=== PATIENT | female | born 1990 | race Hispanic/Latino ===

== ENCOUNTER 2017-06-22 15:12 | Emergency (ER) | payer MEDICAID ==
[2017-06-22 15:49] LABS: APPEARANCE,URINE Clear (CLEAR); BILIRUBIN,URINE Negative (NEGATIVE); COLOR,URINE Yellow (YELLOW); GLUCOSE, URINE (UA) Negative (NEGATIVE); KETONES,URINE Negative (NEGATIVE); LEUKOCYTE ESTERASE ,URINE Trace (NEGATIVE); NITRATE,URINE Negative (NEGATIVE); OCCULT BLOOD,URINE Negative (NEGATIVE); PROTEIN,URINE Negative (NEGATIVE); UROBILINOGEN,URINE 0.2 mg/dL (0.2-1.0)
[2017-06-22 15:51] LABS: BASOPHILS % (AUTO) 0.9 % (0.0-5.0); EOSINOPHILS % (AUTO) 5.1 % (0.0-8.0); HEMATOCRIT 37.8 % (36-48); LYMPHOCYTES % (AUTO) 26.5 % (21.0-51.0); MEAN CORPUSCULAR HEMOGLOBIN 31.6 pg (27.0-33.0); MEAN CORPUSCULAR HGB CONC 34.1 g/dL (32.0-36.0); MEAN CORPUSCULAR VOLUME 92.6 fL (79-99); MONOCYTES % (AUTO) 6.2 % (3.0-13.0); NEUTROPHILS % (AUTO) 61.3 % (40.0-77.0); PLATELET COUNT (AUTO) 327 K/uL (130-400); RED BLOOD CELL COUNT(AUTO) 4.08 MIL/uL (4.00-5.50); WHITE BLOOD COUNT (AUTO) 6.4 K/uL (4.8-10.8)
[2017-06-22] MEDS ORDERED: ACETAMINOPHEN EXTRA STRENGTH 500 MG TABLET ONE (15:55)
[2017-06-22 15:57] LABS: BACTERIA,URINE Rare /HPF (None Seen); RBC,URINE None Seen /HPF (0-1); SQUAMOUS EPITHELIAL CELL,UR 0-2 /LPF (0-2); WBC,URINE 0-1 /HPF (0-1)
[2017-06-22 15:58] LABS: CREATININE 0.9 mg/dL (0.5-1.5); POTASSIUM 4.1 mmol/L (3.5-5.1)
[2017-06-22 16:08] LABS: ALBUMIN 3.8 g/dL (3.5-5.0); BILIRUBIN,TOTAL 0.1 mg/dL (0.2-1.0); TOTAL PROTEIN, SERUM 7.1 g/dL (6.0-8.3)
== END 2017-06-22 16:32 | disposition home or self-care (01) ==
LOC: EDH 15:12
DX: R10.30 Lower abdominal pain, unspecified (principal); R35.0 Frequency of micturition
CPT/HCPCS: 36415; 80053; 81001; 83690; 84702; 85025

== ENCOUNTER 2017-08-17 05:02 | Emergency (ER) | payer MEDICAID | END 2017-08-17 06:09 | disposition left against medical advice (07) | LOC: EDH 05:02 | DX: K08.89 Other specified disorders of teeth and supporting structures (principal); F32.9 Major depressive disorder, single episode, unspecified | CPT/HCPCS: 81025 ==

== ENCOUNTER 2017-09-16 10:33 | Emergency (ER) | payer MEDICAID ==
[2017-09-16] MEDS ORDERED: ACETAMINOPHEN-CODEINE 300/30MG TAB ONE (11:04)
[2017-09-16 11:12] LABS: APPEARANCE,URINE Clear (CLEAR); BILIRUBIN,URINE Negative (NEGATIVE); COLOR,URINE Yellow (YELLOW); GLUCOSE, URINE (UA) Negative (NEGATIVE); HCG,QUAL RESULT NEGATIVE (NEGATIVE); KETONES,URINE Negative (NEGATIVE); LEUKOCYTE ESTERASE ,URINE Negative (NEGATIVE); NITRATE,URINE Negative (NEGATIVE); OCCULT BLOOD,URINE Negative (NEGATIVE); PROTEIN,URINE Negative (NEGATIVE)
[2017-09-16 11:33] LABS: RAPID GROUP A STREP NEGATIVE (NEGATIVE)
== END 2017-09-16 12:23 | disposition home or self-care (01) ==
LOC: EDH 10:33
DX: J06.9 Acute upper respiratory infection, unspecified (principal)
CPT/HCPCS: 71046; 81003; 81025; 87804; 87880

== ENCOUNTER 2018-02-23 02:59 | Emergency (ER) | payer MEDICAID ==
[2018-02-23 03:33] LABS: APPEARANCE,URINE Cloudy (CLEAR); BILIRUBIN,URINE Negative (NEGATIVE); COLOR,URINE Yellow (YELLOW); GLUCOSE, URINE (UA) Negative (NEGATIVE); KETONES,URINE Negative (NEGATIVE); LEUKOCYTE ESTERASE ,URINE Small (NEGATIVE); NITRATE,URINE Negative (NEGATIVE); OCCULT BLOOD,URINE Large (NEGATIVE); PH,URINE 5.5 (5.0-8.0); PROTEIN,URINE Trace (NEGATIVE)
[2018-02-23 03:33] LABS: BASOPHILS % (AUTO) 0.6 % (0.0-5.0); EOSINOPHILS % (AUTO) 1.7 % (0.0-8.0); HEMATOCRIT 40.1 % (36-48); LYMPHOCYTES % (AUTO) 27.6 % (21.0-51.0); MEAN CORPUSCULAR HGB CONC 33.4 g/dL (32.0-36.0); MONOCYTES % (AUTO) 5.7 % (3.0-13.0); NEUTROPHILS % (AUTO) 64.4 % (40.0-77.0); PLATELET COUNT (AUTO) 382 K/uL (130-400); RED BLOOD CELL COUNT(AUTO) 4.46 MIL/uL (4.00-5.50); RED CELL DISTRIBUTION WIDTH 15.1 % (11.0-15.5); WHITE BLOOD COUNT (AUTO) 10.4 K/uL (4.8-10.8)
[2018-02-23 03:37] LABS: HCG,QUAL RESULT POSITIVE (NEGATIVE)
[2018-02-23 03:40] LABS: CREATININE 0.8 mg/dL (0.5-1.5); POTASSIUM 3.2 mmol/L (3.5-5.1)
[2018-02-23 03:41] LABS: AMPHET/METH SCREEN,URINE NEGATIVE (NEGATIVE); BARBITURATE SCREEN, URINE NEGATIVE (NEGATIVE); BENZODIAZEPINES SCREEN,URINE POSITIVE (NEGATIVE); CANNABINOID SCREEN,URINE NEGATIVE (NEGATIVE); COCAINE SCREEN,URINE NEGATIVE (NEGATIVE); OPIATE SCREEN,URINE NEGATIVE (NEGATIVE); PHENCYCLIDINE SCREEN,URINE NEGATIVE (NEGATIVE)
[2018-02-23 03:44] LABS: INR 0.99 (0.85-1.15); PARTIAL THROMBOPLASTIN TIME 30.7 SEC (26.3-35.5); PROTHROMBIN TIME 10.4 SEC (9.6-11.6)
[2018-02-23 03:51] LABS: AMORPHOUS SEDIMENT,UR Rare /LPF (None Seen); BACTERIA,URINE Rare /HPF (None Seen); RBC,URINE 0-1 /HPF (0-1); SQUAMOUS EPITHELIAL CELL,UR Moderate /HPF (0-2)
[2018-02-23 04:05] LABS: BILIRUBIN,TOTAL 0.2 mg/dL (0.2-1.0); TOTAL PROTEIN, SERUM 8.2 g/dL (6.0-8.3)
== END 2018-02-23 06:18 | disposition home or self-care (01) ==
LOC: EDH 02:59
DX: O20.0 Threatened abortion (principal); Z3A.01 Less than 8 weeks gestation of pregnancy
CPT/HCPCS: 36415; 76801; 80053; 80305; 81001; 81025; 84702; 85025; 85610; 85730

== ENCOUNTER 2018-05-02 14:30 | Emergency (ER) | payer MEDICAID ==
[2018-05-02] MEDS ORDERED: SODIUM CHLORIDE 0.9% 1000ML 2,000 ML IV ONE (15:13)
[2018-05-02] MEDS ORDERED: ONDANSETRON HCL 4 MG/2 ML VIAL ONE (15:13)
[2018-05-02 15:14] LABS: BASOPHILS % (AUTO) 0.4 % (0.0-5.0); EOSINOPHILS % (AUTO) 1.1 % (0.0-8.0); HEMATOCRIT 39.3 % (36-48); LYMPHOCYTES % (AUTO) 14.6 % (21.0-51.0); MEAN CORPUSCULAR HEMOGLOBIN 30.2 pg (27.0-33.0); MEAN CORPUSCULAR HGB CONC 33.8 g/dL (32.0-36.0); MEAN CORPUSCULAR VOLUME 89.2 fL (79-99); MONOCYTES % (AUTO) 4.4 % (3.0-13.0); NEUTROPHILS % (AUTO) 79.5 % (40.0-77.0); PLATELET COUNT (AUTO) 255 K/uL (130-400); RED BLOOD CELL COUNT(AUTO) 4.41 MIL/uL (4.00-5.50); RED CELL DISTRIBUTION WIDTH 13.8 % (11.0-15.5)
[2018-05-02 15:33] LABS: APPEARANCE,URINE Clear (CLEAR); BILIRUBIN,URINE Negative (NEGATIVE); COLOR,URINE Yellow (YELLOW); GLUCOSE, URINE (UA) Negative (NEGATIVE); KETONES,URINE Negative (NEGATIVE); LEUKOCYTE ESTERASE ,URINE Negative (NEGATIVE); NITRATE,URINE Negative (NEGATIVE); OCCULT BLOOD,URINE Negative (NEGATIVE); PH,URINE 5.5 (5.0-8.0); PROTEIN,URINE Negative (NEGATIVE); UROBILINOGEN,URINE 0.2 mg/dL (0.2-1.0)
[2018-05-02 15:39] LABS: CREATININE 0.7 mg/dL (0.5-1.5); POTASSIUM 3.8 mmol/L (3.5-5.1)
[2018-05-02 15:45] LABS: ALBUMIN 3.5 g/dL (3.5-5.0); BILIRUBIN,TOTAL 0.2 mg/dL (0.2-1.0); TOTAL PROTEIN, SERUM 7.6 g/dL (6.0-8.3)
== END 2018-05-02 16:56 | disposition home or self-care (01) ==
LOC: EDH 14:30
DX: O21.0 Mild hyperemesis gravidarum (principal); O99.341 Other mental disorders complicating pregnancy, first trimester; F41.8 Other specified anxiety disorders; Z3A.13 13 weeks gestation of pregnancy
CPT/HCPCS: 36415; 80053; 81003; 82150; 83690; 85025; 96361; 96374; 99283; J2405; J7030

== ENCOUNTER 2018-07-30 17:25 | Observation (INO) | payer MEDICAID ==
[2018-07-30 17:52] LABS: APPEARANCE,URINE CLOUDY (CLEAR); BILIRUBIN,URINE NEGATIVE (NEGATIVE); COLOR,URINE YELLOW (YELLOW); GLUCOSE, URINE (UA) NEGATIVE (NEGATIVE); KETONES,URINE NEGATIVE (NEGATIVE); LEUKOCYTE ESTERASE ,URINE SMALL (NEGATIVE); NITRATE,URINE NEGATIVE (NEGATIVE); OCCULT BLOOD,URINE NEGATIVE (NEGATIVE); PH,URINE 6.5 (5.0-8.0); PROTEIN,URINE TRACE (NEGATIVE); UROBILINOGEN,URINE 0.2 mg/dL (0.2-1.0)
[2018-07-30 18:01] LABS: AMPHET/METH SCREEN,URINE NEGATIVE (NEGATIVE); BARBITURATE SCREEN, URINE NEGATIVE (NEGATIVE); BENZODIAZEPINES SCREEN,URINE POSITIVE (NEGATIVE); CANNABINOID SCREEN,URINE NEGATIVE (NEGATIVE); COCAINE SCREEN,URINE NEGATIVE (NEGATIVE); OPIATE SCREEN,URINE NEGATIVE (NEGATIVE); PHENCYCLIDINE SCREEN,URINE NEGATIVE (NEGATIVE)
[2018-07-30 19:27] LABS: BACTERIA,URINE Moderate /HPF (None Seen); RBC,URINE 0-1 /HPF (0-1); SQUAMOUS EPITHELIAL CELL,UR Moderate /HPF (0-2)
[2018-07-30 19:30] LABS: YEAST,URINE BUDDING Few /HPF (None Seen)
== END 2018-07-30 21:05 | disposition home or self-care (01) ==
LOC: EDH 17:25 → LDH 17:37
PROVIDERS: ADMIT Specialist; ATTEND Specialist
DX: O26.892 Other specified pregnancy related conditions, second trimester (principal); R10.9 Unspecified abdominal pain; N89.8 Other specified noninflammatory disorders of vagina; O99.342 Other mental disorders complicating pregnancy, second trimester; F32.9 Major depressive disorder, single episode, unspecified; Z3A.27 27 weeks gestation of pregnancy; Z79.899 Other long term (current) drug therapy
CPT/HCPCS: 76805; 80305; 81001; 82120; 99284; G0378 ×3; J7120; 96360; 96361

== ENCOUNTER 2018-08-12 16:08 | Observation (INO) | payer MEDICAID ==
[~2018-08-12] VITALS: Ht 162.6 cm; Wt 79.8 kg
[2018-08-12 16:34] VITALS: BP 116/78
[2018-08-12 16:47] LABS: APPEARANCE,URINE Clear (CLEAR); BILIRUBIN,URINE Negative (NEGATIVE); COLOR,URINE Yellow (YELLOW); GLUCOSE, URINE (UA) Negative (NEGATIVE); KETONES,URINE Negative (NEGATIVE); LEUKOCYTE ESTERASE ,URINE Negative (NEGATIVE); NITRATE,URINE Negative (NEGATIVE); OCCULT BLOOD,URINE Negative (NEGATIVE); PROTEIN,URINE Negative (NEGATIVE); UROBILINOGEN,URINE 0.2 mg/dL (0.2-1.0)
[2018-08-12 18:46] LABS: AMPHET/METH SCREEN,URINE NEGATIVE (NEGATIVE); BARBITURATE SCREEN, URINE NEGATIVE (NEGATIVE); BENZODIAZEPINES SCREEN,URINE POSITIVE (NEGATIVE); CANNABINOID SCREEN,URINE NEGATIVE (NEGATIVE); COCAINE SCREEN,URINE NEGATIVE (NEGATIVE); OPIATE SCREEN,URINE NEGATIVE (NEGATIVE); PHENCYCLIDINE SCREEN,URINE NEGATIVE (NEGATIVE)
== END 2018-08-12 18:32 | disposition home or self-care (01) ==
LOC: EDH 16:08 → LDH 16:18
PROVIDERS: ADMIT Specialist; ATTEND Specialist
DX: O60.03 Preterm labor without delivery, third trimester (principal); O99.343 Other mental disorders complicating pregnancy, third trimester; F32.9 Major depressive disorder, single episode, unspecified; Z3A.29 29 weeks gestation of pregnancy; Z79.899 Other long term (current) drug therapy
CPT/HCPCS: 76805; 80305; 81003; 82120; 99284; G0378 ×2

== ENCOUNTER 2018-09-24 14:04 | Observation (INO) | payer MEDICAID ==
[~2018-09-24] VITALS: Ht 162.6 cm; Wt 82.1 kg
[2018-09-24] MEDS ORDERED: ACETAMINOPHEN-CODEINE 300/30MG TAB PO ONE (16:00)
[2018-09-24 16:59] LABS: BILIRUBIN,URINE Negative (NEGATIVE); COLOR,URINE Yellow (YELLOW); GLUCOSE, URINE (UA) Negative (NEGATIVE); KETONES,URINE Negative (NEGATIVE); LEUKOCYTE ESTERASE ,URINE Moderate (NEGATIVE); NITRATE,URINE Negative (NEGATIVE); OCCULT BLOOD,URINE Negative (NEGATIVE); PROTEIN,URINE Negative (NEGATIVE); UROBILINOGEN,URINE 0.2 mg/dL (0.2-1.0)
[2018-09-24 17:00] LABS: APPEARANCE,URINE HAZY (CLEAR)
[2018-09-24 17:13] LABS: BACTERIA,URINE Rare /HPF (None Seen); RBC,URINE None Seen /HPF (0-1)
[2018-09-24] MEDS ORDERED: MAGNESIUM HYDROXIDE 30 ML/UDCUP PO SCH (17:30)
[2018-09-24 17:50] LABS: AMPHET/METH SCREEN,URINE NEGATIVE (NEGATIVE); BARBITURATE SCREEN, URINE NEGATIVE (NEGATIVE); BENZODIAZEPINES SCREEN,URINE NEGATIVE (NEGATIVE); CANNABINOID SCREEN,URINE NEGATIVE (NEGATIVE); COCAINE SCREEN,URINE NEGATIVE (NEGATIVE); OPIATE SCREEN,URINE NEGATIVE (NEGATIVE); PHENCYCLIDINE SCREEN,URINE NEGATIVE (NEGATIVE)
== END 2018-09-24 18:25 | disposition home or self-care (01) ==
LOC: EDH 14:04 → LDH 14:21
PROVIDERS: ADMIT Specialist; ATTEND Specialist
DX: O26.893 Other specified pregnancy related conditions, third trimester (principal); R10.30 Lower abdominal pain, unspecified; O99.613 Diseases of the digestive system complicating pregnancy, third trimester; K59.00 Constipation, unspecified; O99.343 Other mental disorders complicating pregnancy, third trimester; F32.9 Major depressive disorder, single episode, unspecified; Z3A.35 35 weeks gestation of pregnancy; Z79.899 Other long term (current) drug therapy
CPT/HCPCS: 80305; 81001; 99284; G0378 ×4

== ENCOUNTER 2018-10-01 14:57 | Observation (INO) | payer MEDICAID ==
[~2018-10-01] VITALS: Ht 162.6 cm; Wt 83.0 kg
[2018-10-01] MEDS ORDERED: LACTATED RINGERS 1000ML IV SCH (15:15)
[2018-10-01] MEDS ORDERED: PROMETHAZINE HCL 25 MG/ML 1ML AMPULE IM SCH (16:15)
[2018-10-01 16:54] LABS: APPEARANCE,URINE Clear (CLEAR); BILIRUBIN,URINE Negative (NEGATIVE); COLOR,URINE Yellow (YELLOW); GLUCOSE, URINE (UA) Negative (NEGATIVE); KETONES,URINE Negative (NEGATIVE); LEUKOCYTE ESTERASE ,URINE Moderate (NEGATIVE); NITRATE,URINE Negative (NEGATIVE); OCCULT BLOOD,URINE Negative (NEGATIVE); PROTEIN,URINE Negative (NEGATIVE)
[2018-10-01] MEDS ORDERED: 1/2 NORMAL SALINE + 20 MEQ KCL 1,000 ML IV SCH (17:15)
[2018-10-01] MEDS ORDERED: LIDOCAINE HCL-MPF 1% 2ML VIAL IVP PRN (17:15)
[2018-10-01 17:21] LABS: BACTERIA,URINE Rare /HPF (None Seen); RBC,URINE 0-1 /HPF (0-1); SQUAMOUS EPITHELIAL CELL,UR Few /HPF (0-2); TRANSITIONAL EPI CELLS,URINE Rare /HPF (None Seen)
[2018-10-01 17:30] VITALS: BP 128/87
[2018-10-01] MEDS: POTASSIUM CHLORIDE 20MEQ/100ML 100 ML IV PRN ×2 (18:10→20:51)
[2018-10-01] MEDS ORDERED: PNV1TABL17 PO (18:21)
[2018-10-01] MEDS ORDERED: BUSP15TA3 PO (18:21)
[2018-10-01] MEDS ORDERED: DIPH25CA85 PO (18:21)
[2018-10-01] MEDS ORDERED: MELA5CAP PO (18:21)
[2018-10-01] MEDS ORDERED: LURA60TA PO (18:21)
[2018-10-01 20:13] VITALS: BP 126/80
[2018-10-01 23:03] VITALS: BP 122/72
[2018-10-01] MEDS: ONDANSETRON HCL 4 MG/2 ML VIAL IVP PRN (23:49)
--- NOTE | 2018-10-02 00:35 | NUR ---
NST STARTED AT 0005 AND COMPLETED AT 0035, MOVEMENT PRESENT. PT DENIED CONTRACTIONS AND NONE NOTED. DENIED VAGINAL DISCHARGE. Addendum: 10/02/18 at 0202 by ANTHONY FLORES RN RN Amended: Links added.
[2018-10-02] MEDS: LACTATED RINGERS 1000ML 1,000 ML IV SCH ×2 (01:15→02:40)
[2018-10-02 03:14] VITALS: BP 113/77
[2018-10-02] MEDS: POTASSIUM CHLORIDE 20MEQ/100ML 100 ML IV PRN (07:48)
[2018-10-02 07:50] VITALS: BP 129/92
[2018-10-02] MEDS ORDERED: POTASSIUM CHLORIDE 10% ELIXIR 20 MEQ/15 ML UDCUP PO PRN (08:45)
[2018-10-02] MEDS ORDERED: POTASSIUM CHLORIDE 20MEQ/100ML 100 ML IV PRN (08:45)
[2018-10-02] MEDS ORDERED: LIDOCAINE HCL-MPF 1% 2ML VIAL IVP PRN (08:45)
[2018-10-02] MEDS: POTASSIUM CHLORIDE 20 MEQ ERTAB PO PRN ×2 (09:02→12:20)
[2018-10-02] MEDS: ONDANSETRON HCL 4 MG/2 ML VIAL IVP PRN (09:04)
--- NOTE | 2018-10-02 09:50 | NUR ---
NST NST COMPLETED: FHT 135, REACTIVE, MOVEMENT NOTED BY PT, NO CONTRACTIONS NOTED; PT TOLERATED WELL, NO C/O PAIN
[2018-10-02 11:36] VITALS: BP 111/65
--- NOTE | 2018-10-02 12:40 | NUR ---
DISCHARGE PT STABLE, NO PAIN, NO COMPLAINTS; PT LEFT UNIT, VIA WHEELCHAIR, STILL , ACCOMPANIED BY RN AND FAMILY MEMBER CARRYING ALL PERSONAL BELONGINGS AND INSTRUCTIONS; PT LEFT FACILITY IN PERSONAL VEHICLE
[2018-10-08] MEDS ORDERED: POLY17PO4 PO (19:15)
[2018-10-08] MEDS ORDERED: VALA500T PO (19:15)
[2018-10-08] MEDS ORDERED: [UNRECOGNIZED DRUG - OTHER] (19:15)
[2018-10-09] MEDS ORDERED: LURA60TA PO (19:43)
== END 2018-10-02 12:40 | disposition home or self-care (01) ==
LOC: LDH 14:57 → WSH 17:30
PROVIDERS: ADMIT Specialist; ATTEND Specialist
DX: O99.613 Diseases of the digestive system complicating pregnancy, third trimester (principal); K52.9 Noninfective gastroenteritis and colitis, unspecified; O99.283 Endocrine, nutritional and metabolic diseases complicating pregnancy, third trimester; E86.0 Dehydration; Z3A.36 36 weeks gestation of pregnancy
CPT/HCPCS: 36415 ×2; 80051; 81001; 84132; 96361 ×3; 96372; 96374; 96376; G0378 ×22; J2405 ×2; J2550; J3480 ×4; J7120; 96360

== ENCOUNTER 2018-10-08 16:57 | Inpatient (IN) | payer MEDICAID | END 2018-10-10 18:25 | disposition home or self-care (01) | LOC: LDH 16:57 → WSH 10-10 09:35 | PROC: 10E0XZZ Delivery of Products of Conception, External Approach (ICD-10-PCS; principal; ~2018-10-08) | DX: O62.3 Precipitate labor (principal); Z37.0 Single live birth ==

== ENCOUNTER 2018-11-04 17:01 | Emergency (ER) | payer MEDICAID ==
[~2018-11-04 17:01] MED LIST: BUSP15TA3 PO; DIPH25CA85 PO; LURA60TA PO; MELA5CAP PO; PNV1TABL17 PO; POLY17PO4 PO; VALA500T PO; [UNRECOGNIZED DRUG - OTHER]
[2018-11-04 17:27] LABS: BASOPHILS % (AUTO) 0.8 % (0.0-5.0); EOSINOPHILS % (AUTO) 6.2 % (0.0-8.0); LYMPHOCYTES % (AUTO) 21.5 % (21.0-51.0); MEAN CORPUSCULAR HGB CONC 33.7 g/dL (32.0-36.0); MEAN CORPUSCULAR VOLUME 86.2 fL (79-99); MONOCYTES % (AUTO) 4.8 % (3.0-13.0); NEUTROPHILS % (AUTO) 66.7 % (40.0-77.0); PLATELET COUNT (AUTO) 436 K/uL (130-400); RED BLOOD CELL COUNT(AUTO) 4.06 MIL/uL (4.00-5.50); RED CELL DISTRIBUTION WIDTH 15.8 % (11.0-15.5); WHITE BLOOD COUNT (AUTO) 8.6 K/uL (4.8-10.8)
[2018-11-04 17:40] LABS: CARBON DIOXIDE 28 mmol/L (21-32); CHLORIDE 101 mmol/L (101-111); GLOMERULAR FILTR. RATE CALC 69 mL/min (>60); GLUCOSE,RANDOM 109 mg/dL (70-105); POTASSIUM 4.1 mmol/L (3.5-5.1); SODIUM SERUM 139 mmol/L (136-145); UREA NITROGEN, BLOOD 14 mg/dL (7-18)
[2018-11-04 17:44] LABS: ALANINE AMINOTRANSFERASE 22 U/L (12-78); ALCOHOL, BLOOD < 3 mg/dL (0-10); ASPARTATE AMINOTRANSFERASE 19 U/L (10-37); BILIRUBIN,TOTAL 0.3 mg/dL (0.2-1.0); CREATINE KINASE, TOTAL 52 U/L (21-232); TOTAL PROTEIN, SERUM 8.3 g/dL (6.0-8.3)
[2018-11-04 17:47] LABS: ACETAMINOPHEN < 1 mcg/mL (10-30); SALICYLATE < 2.8 mg/dL (2.8-20.0)
[2018-11-04 18:35] LABS: APPEARANCE,URINE Clear (CLEAR); BILIRUBIN,URINE Negative (NEGATIVE); COLOR,URINE Yellow (YELLOW); GLUCOSE, URINE (UA) Negative (NEGATIVE); KETONES,URINE Negative (NEGATIVE); LEUKOCYTE ESTERASE ,URINE Small (NEGATIVE); NITRATE,URINE Negative (NEGATIVE); OCCULT BLOOD,URINE Large (NEGATIVE); PH,URINE 5.5 (5.0-8.0); PROTEIN,URINE Negative (NEGATIVE); UROBILINOGEN,URINE 0.2 mg/dL (0.2-1.0)
[2018-11-04 18:42] LABS: HCG,QUAL RESULT NEGATIVE (NEGATIVE)
[2018-11-04 18:44] LABS: AMPHET/METH SCREEN,URINE NEGATIVE (NEGATIVE); BARBITURATE SCREEN, URINE NEGATIVE (NEGATIVE); BENZODIAZEPINES SCREEN,URINE NEGATIVE (NEGATIVE); CANNABINOID SCREEN,URINE NEGATIVE (NEGATIVE); COCAINE SCREEN,URINE POSITIVE (NEGATIVE); OPIATE SCREEN,URINE NEGATIVE (NEGATIVE); PHENCYCLIDINE SCREEN,URINE NEGATIVE (NEGATIVE)
[2018-11-04 18:57] LABS: BACTERIA,URINE Few /HPF (None Seen)
== END 2018-11-04 20:26 | disposition home or self-care (01) ==
LOC: EDH 17:01
DX: T42.6X1A Poisoning by other antiepileptic and sedative-hypnotic drugs, accidental (unintentional), initial encounter (principal); R25.3 Fasciculation; F14.10 Cocaine abuse, uncomplicated; F41.9 Anxiety disorder, unspecified; F31.9 Bipolar disorder, unspecified; Y92.89 Other specified places as the place of occurrence of the external cause
CPT/HCPCS: 36415; 80053; 80305; 81001; 81025; 82550; 84443; 84484; 85025; 93005; 99285; G0480 ×2; G0481